=== PATIENT | female | born 1990 | race American Indian/Alaskan Native ===

== ENCOUNTER 2022-06-05 10:26 | Outpatient (CLI) | payer OTHER ==
--- NOTE | 2022-06-05 13:59 | Vascular Lab Report ---
DUPLEX DOPPLER LOWER EXTREMITY VEINS, BILATERAL INDICATION / CLINICAL INFORMATION: I82.409/ ACUTE EMBOLISM AND THROMBOSIS OF DEEP VEINS IN LOWER EXT. TECHNIQUE: Duplex doppler imaging was performed through the veins of both lower extremities using duane ous compression and other maneuvers. COMPARISON: None available. FINDINGS: RIGHT COMMON FEMORAL VEIN: Negative. RIGHT FEMORAL VEIN: Negative. RIGHT POPLITEAL VEIN: Negative. RIGHT CALF VEINS: Negative. LEFT COMMON FEMORAL VEIN: Negative. LEFT FEMORAL VEIN: Negative. LEFT POPLITEAL VEIN: Negative. LEFT CALF VEINS: Negative. ADDITIONAL FINDINGS: None. IMPRESSION: 1. No sonographic evidence for DVT in either lower extremity. Scribed by: Bonnie Pena RDMS, NAGI, CED Scribed: 06/05/2022 11:49 AM I have reviewed the images, agree with this report, and edited this report as needed. Signer Name: Kuldeep Barnhart MD Signed: 06/05/2022 1:54 PM Workstation Name: [email or web address]
--- NOTE | 2022-06-05 16:31 | Ultrasound Report ---
ULTRASOUND ABDOMEN, COMPLETE INDICATION / CLINICAL INFORMATION: R10.9. Abdominal pain COMPARISON: None available. FINDINGS: PANCREAS: No significant abnormality. ABDOMINAL AORTA: No significant abnormality. IVC: No significant abnormality. LIVER: The liver is normal in size measuring 14.5 cm . No evidence of focal hepatic lesion. Normal he patopedal blood flow within the main portal vein. GALLBLADDER: No significant abnormality. BILE DUCTS: No significant abnormality. Common bile duct measures 2 mm. KIDNEYS: Right: The right kidney measures 10.2 cm. No significant abnormality. Left: The left kidney measures 10.6 cm. No significant abnormality. SPLEEN: The spleen measures 9.0 cm. No significant abnormality. FREE FLUID: None. ADDITIONAL FINDINGS: None. IMPRESSION: 1. No significant sonographic abnormality of the abdomen. Scribed by: Bonnie Pena RDMS, RVT, RMSKS Scribed: 06/05/2022 2:49 PM I have reviewed the images, agree with this report, and edited this report as needed. Signer Name: Saji Waters MD Signed: 06/05/2022 4:26 PM Workstation Name: [id number]
== END 2022-06-05 10:27 | disposition home or self-care (01) ==
LOC: US 10:26
DX: R10.9 Unspecified abdominal pain (principal); I82.409 Acute embolism and thrombosis of unspecified deep veins of unspecified lower extremity
CPT/HCPCS: 76700; 93970